=== PATIENT | male | born 1990 | race Caucasian/White ===

== ENCOUNTER → 2020-06-24 14:37 | Outpatient (BNVA) | payer SELFPAY | PROVIDERS: Family Provider Nurse Practitioner; PCP Nurse Practitioner Family; Visit Provider Emergency Medicine | DX: Z20.828 Contact with and (suspected) exposure to other viral communicable diseases (principal) | CPT/HCPCS: 87635 ==

== ENCOUNTER 2021-09-12 11:45 | Emergency (ER) | payer SELFPAY ==
[2021-09-12 11:47] VITALS: BP 175/90; PULSE 100; RESP 14; TEMP 36.8; O2SAT 100; BMI 32.8
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
[2021-09-12] MEDS: iohexol 300 mg/mL 100 mL Btl IV (12:55)
[2021-09-12 13:05] VITALS: RESP 16
[2021-09-12] MEDS: tetanus-dipt-pertussis 0.5 mL SDV IM (13:05)
[2021-09-12] MEDS: morphine 4 mg/mL SDV 1 mL IVP (13:05)
[2021-09-12 13:59] VITALS: BP 131/65; PULSE 86; RESP 14; O2SAT 97
== END 2021-09-12 13:59 | disposition home or self-care (01) ==
PROVIDERS: Emergency Provider Emergency Medicine; Family Provider Nurse Practitioner; PCP Nurse Practitioner Family
DX: S30.1XXA Contusion of abdominal wall, initial encounter (principal); S20.212A Contusion of left front wall of thorax, initial encounter; S40.012A Contusion of left shoulder, initial encounter; S80.12XA Contusion of left lower leg, initial encounter; S30.811A Abrasion of abdominal wall, initial encounter; S80.812A Abrasion, left lower leg, initial encounter; S20.312A Abrasion of left front wall of thorax, initial encounter; F17.210 Nicotine dependence, cigarettes, uncomplicated; V89.2XXA Person injured in unspecified motor-vehicle accident, traffic, initial encounter; Z23 Encounter for immunization
CPT/HCPCS: 70450; 71260; 72125; 72128; 73552; 73562; 73590; 74177; 90471; 90715; 96374; 99284; J2270; Q9967

== ENCOUNTER 2021-10-19 15:04 | Outpatient (CLI) | payer BC, SELFPAY ==
--- NOTE | 2021-10-19 15:36 | XR_ITS ---
WS: [email or web address] Exam: XR thoracic spine 3V* [id number] Date/Time of Exam: 10/19/2021 3:41 PM Reason For Exam: ACUTE LEFT SIDED THORACIC BACK PAIN Exam: XR thoracic spine 3V* [id number] Date/Time of Exam: 10/19/2021 3:41 PM Reason For Exam: ACUTE LEFT SIDED THORACIC BACK PAIN No acute fracture or dislocation. Paraspinal soft tissues are unremarkable. No scoliosis. XR/XR thoracic spine 3V* [id number] IMPRESSION: 1. Unremarkable thoracic spine study.
== END 2021-10-19 15:05 | disposition home or self-care (01) ==
PROVIDERS: PCP Nurse Practitioner Family; Visit Provider Nurse Practitioner Family
DX: M54.6 Pain in thoracic spine (principal)
CPT/HCPCS: 72072

== ENCOUNTER → 2022-07-11 12:11 | Outpatient (BNVA) | payer BC, SELFPAY | PROVIDERS: PCP Nurse Practitioner Family; Visit Provider Emergency Medicine | DX: R09.81 Nasal congestion (principal); B34.9 Viral infection, unspecified | CPT/HCPCS: 87400 ==

== ENCOUNTER 2025-03-15 06:36 | Emergency (ER) | payer SELFPAY ==
--- OUTSIDE RECORDS SUMMARY | 2025-03-15 06:42 | XMS_ITS | Patient Health Record ---
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 Role Phone [place], [facility] Primary Care Provider [phone] MERLOS, [facility] Unavailable Unavailable Allergies No Known Allergies Reason For Referral No Information Medications Medication SIG (Take, Route, Frequency, Duration) Notes Start Date End Date Status Phentermine HCl 37.5 MG Tablet 1 tablet Orally Once a day; Duration: 30 days 02/09/2022 Not-Taking Cyclobenzaprine HCl 10 MG Tablet 1 tablet tid prn muscle spasms Orally tid; Duration: 30 day(s) Not-Taking methylPREDNISolone 4 MG Tablet Therapy Pack as directed Orally every 12 hrs; Duration: 6 days Not-Taking Ibuprofen 800 MG Tablet 1 tablet with fo od or milk as needed Orally Three times a day; Duration: 30 days Active Social History Tobacco Use: Social History Observation Description Date Details (start date - stop date) Current Smoker NA - NA Social History Depression Screening Social Info Question Answer Notes PHQ-9 Little interest or pleasure in doing thin gs Not at all Feeling down, depressed, or hopeless Several day s Trouble falling or staying asleep, or sleeping t oo much Several days Feeling tired or having little energy Several da ys Poor appetite or overeating Not at all Feeling bad about yourself, or that you are a failure, or have let yourself or your family down Several days Trouble concentrating on thi ngs, such as reading the newspaper or watching television Not at all Moving or speaking so slowly that other people could have noticed. Or the opposite ? being so fidgety or restless that you have been moving around a lot more than usual Not at all Thoughts that you would be b bill off , or of hurting yourself in some way Not at all Total Score 4 Interpretation Minimal Depression Drugs/Alcohol: Social Info Question Answer Notes Alcohol Screen (Audit-C) Did you have a drink containing alcohol in the past year? Yes How often did you have a drink containing alcohol in the past year? Monthly or less (1 point) Points 1 Interpretation Negative Drugs Have you used drugs other than those for medical reasons in the past 12 months? No Tobacco Use: Social Info Question Answer Notes xTobacco Use/Smoking Are you a current smoker How often do you smoke cigarettes? every day How many cigarettes a day do you smoke? 6-10 How soon after you wake up do you smoke your first cigarette? after 60 minutes Are you interested in quitting? Thinking about quitting Additional Details Category Social Info Options Details Drugs/Alcohol: Do you smoke marijuana? Ad mits, seldom Do you drink alcohol? Yes, occas ionally Section Notes: 12/28/2021 12/28/2021 PHQ-9 10/19/21 12/28/2021 10/19/21 Problems Problem Type SNOMED Code ICD Code Onset Dates Problem Status W/U Status Risk Notes Problem Morbid obesity (disorder) (584989983) Morbid (severe) obesity due to excess calories (E66.01) Active confirmed Problem Annual wellness visit (318272327021483) Wellness examination (Z00.00) Active confirmed Problem Posttraumatic stress disorder (42211603) PTSD (post-traumatic stress disorder) (F43.10) Active confirmed Problem Depression (052780831) Other depression (F32.89) Active confirmed Problem Morbid obesity (050084120) Morbid obesity (E66.01) Active confirmed Problem Lipid screening (525748882) Lipid screening (Z13.220) Active confirmed Problem Thyroid disorder screening (589254689) Thyroid disorder screen (Z13.29) Active confirmed Problem Body mass index 30.00 to 34.99 (311365048057867) Body mass index [BMI] 33.0-33.9, adult (Z68.33) Active confirmed Problem Body mass index 30.00 to 34.99 (855899850740460) Body mass index [BMI] 34.0-34.9, adult (Z68.34) Active confirmed Problem Obese class II (553800987954906) Body mass index [BMI] 35.0-35.9, adult (Z68.35) Active confirmed Problem 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) Shifting sleep-work schedule (G47.26) Active confirmed Problem Body mass index 30+ - obesity (099845550) Body mass index [BMI] 30.0-30.9, adult (Z68.30) Active confirmed Problem Body mass index 40+ - severely obese (630377911) Body mass index [BMI] 40.0-44.9, adult (Z68.41) Active confirmed Plan Of Treatment No Information Insurance Providers Payer Name Payer Address Payer Phone Subscriber Number Group Number Insured Name Patient Relationship to Insured Coverage Start Date Coverage End Date [employer] [address] [address] [place] [phone] [id number] JUSTYN STRONG Self - patient is the insured Medical (General) History Medical History History ICD Code Hypothyroidism Surgical History Surgery Date(Month/Year) tonsillectomy Colonoscopy 2010 wisdom teeth extraction Hospitalization History Reason Date(Month/Year) pneumonia twice
[2025-03-15 07:18] VITALS: BP 132/78; PULSE 75; RESP 16; TEMP 36.6; O2SAT 96; BMI 47.2
[2025-03-15 07:24] LABS: Hematocrit 47.0 % (37-53); Hemoglobin 15.30 g/dL (11.27-16.99); Mean Corpuscular HGB Conc 32.6 g/dL (30-55); Mean Corpuscular Hemoglobin 27.4 pg (27-33); Mean Corpuscular Volume 84.1 fl (82-101); Nucleated Red Blood Cells % 0 %; Platelet Count 402 10^3/cmm (157-399); Red Blood Count 5.59 10^6/uL (3.85-5.65); White Blood Count 13.90 10^3/uL (3.29-11.43)
[2025-03-15 07:38] LABS: Alanine Aminotransferase 54 U/L (0-41); Albumin Level 4.5 g/dL (3.5-5.2); Alkaline Phosphatase 81 U/L (40-130); Anion Gap 16.5 (5-19); Aspartate Amino Transferase 30 U/L (0-40); Blood Urea Nitrogen 12 mg/dL (6-20); Calcium 9.7 mg/dL (8.5-10.5); Carbon Dioxide 25 mmol/L (22-29); Chloride 100 mmol/L (98-107); Creatinine Clr Calc Pharmacy 172.4880; Globulin 3.9 g/dL (1.3-4.6); Glucose 131 mg/dL (65-115); Osmolality Calculated 286 mOsm/kg (285-295); Potassium 4.5 mmol/L (3.5-5.1); Sodium 137 mmol/L (136-145); Total Protein 8.4 g/dL (6.6-8.7)
--- NOTE | 2025-03-15 07:52 | W.ED.SKABFB ---
HPI - Skin/Abscess/Foreign Bdy General: Chief complaint: Skin/Abscess/Foreign Body Stated complaint: redness, swelling on chin, weakness, nausea Time Seen by Provider: 03/15/25 06:48 History of Present Illness: 34-year-old male presents emergency room with redness swelling and itching in just to the left of the midline it has been there for some time began as a pimple he been manipulating unable to get it to drain. It is increasingly tender. He recently was biopsied for a skin rash on his left forearm he was started on his series of antibiotics he is down to 2 pills today and 1 pill tomorrow he is unsure of the strength of the prednisone tablets. Has not had any fever. He has had some upset stomach. Associated symptoms: Reports nausea; Deny chills, fever(s) or vomiting Related Data Previous Rx's ?Medication ?Instructions ?Recorded bupropion HCl 150 mg tablet,12 hr 300 mg (2 x 150 mg) PO Q12H 30 03/04/24 sustained-release (Wellbutrin SR) days #120 tabs naltrexone 50 mg tablet 50 mg PO DAILY 30 days #30 tabs 03/04/24 sulfamethoxazole 800 1 tab PO BID 7 days #14 tabs 03/15/25 mg-trimethoprim 160 mg tablet (Bactrim DS) Allergies Allergy/AdvReac Type Severity Reaction Status Date / Time No Known Allergies Allergy Verified 07/11/22 12:06 Review of Systems Const: Denies: fever(s) or chills Card: Denies: chest pain Resp: Denies: dyspnea GI: Reports: nausea; Denies: abdominal pain or vomiting : Denies: dysuria, urinary frequency or urinary urgency Musc: Denies: neck pain or back pain Skin/Breast: Reports: rash, erythema and skin tenderness PFS ED PFSH: Medical History Congenital nystagmus Hypothyroid Surgical History History of tonsillectomy Family History Father Hypertension Diabetes Denies family history of Clotting disorder Dementia Social History Smoking and tobacco/nicotine status: never used tobacco/nicotine Alcohol intake: current Alcohol intake frequency: few times a month Substance/Drug Use: never Physical Exam Const: COMMON NORMALS: no acute distress GENERAL APPEARANCE: cooperative and comfortable ORIENTATION/CONSCIOUSNESS: Yes awake, Yes oriented to person, Yes oriented to place and Yes oriented to time HENMT: COMMON NORMALS: normocephalic, atraumatic and hearing grossly normal bilaterally HEAD & SCALP: normocephalic and atraumatic Eye: OTHER: Mild nystagmus Resp: COMMON NORMALS: normal respiratory effort, No retractions, No use of accessory muscles and clear to auscultation bilaterally AUSCULTATION: clear to auscultation bilaterally Cardio: COMMON NORMALS: regular rate, regular rhythm and No murmurs present (Cardio) RATE: regular rate RHYTHM: regular rhythm GI: COMMON NORMALS: Soft to palpation and No hepatosplenomegaly present AUSCULTATION: Yes normoactive bowel sounds PALPATION: Yes Soft to palpation, No Tenderness to palpation present (GI), No Guarding due to palpation present (GI) and Yes No hepatosplenomegaly present Extremity: COMMON NORMALS: normal to inspection, capillary refill normal, no clubbing, cyanosis or edema, no calf tenderness and no pedal edema Neuro: SENSORIUM/ORIENTATION: Yes oriented to person, Yes oriented to place and Yes oriented to time Skin: OTHER: Mild redness of the skin overlying the central nodular area about 3 cm x 2 cm. It is not fluctuant at this time no active drainage. Tender to touch. Course Vital Signs: Vital signs: Vital Signs Temperature 97.9 F 03/15/25 07:18 Pulse Rate 71 03/15/25 08:12 Respiratory Rate 16 03/15/25 07:18 Blood Pressure 132/78 03/15/25 08:12 Pulse Oximetry 95 03/15/25 08:12 Oxygen Delivery Me thod Room Air 03/15/25 08:12 MDM - Skin/Abscess/Foreign Bdy Medicial Decision Making Discharge. Normal Bactrim DS 1 p.o. twice daily x 7 days follow-up with his primary care doctor can apply moist heat to the area as needed. Follow-up with your primary care if improving. Lab Data 03/15/25 07:17 03/15/25 07:17 Laboratory Results WBC 13.90 10^3/uL (3.29-11.43) H 03/15/25 07:17 RBC 5.59 10^6/uL (3.85-5.65) 03/15/25 07:17 Hgb 15.30 g/dL (11.27-16.99) 03/15/25 07:17 Hct 47.0 % (37-53) 03/15/25 07:17 MCV 84.1 fl (82-101) 03/15/25 07:17 MCH 27.4 pg (27-33) 03/15/25 07:17 MCHC 32.6 g/dL (30-55) 03/15/25 07:17 RDW 14.5 % (12.1-15.1) 03/15/25 07:17 Plt Count 402 10^3/cmm (157-399) H 03/15/25 07:17 MPV 8.9 fL (7.4-10.4) 03/15/25 07:17 Neut % (Auto) 81.0 % 03/15/25 07:17 Lymph % (Auto) 13.7 % 03/15/25 07:17 [place] % (Auto) 4.7 % 03/15/25 07:17 Eos % (Auto) 0.1 % 03/15/25 07:17 Baso % (Auto) 0.1 % 03/15/25 07:17 Neut # (Auto) 11.26 10^3/uL (1.8-7.7) H 03/15/25 07:17 Lymph # (Auto) 1.9 10^3/uL (0.8-4.8) 03/15/25 07:17 [place] # (Auto) 0.7 10^3/uL (0.2-0.9) 03/15/25 07:17 Eos # (Auto) 0.0 10^3/uL (0.0-0.8) 03/15/25 07:17 Baso # (Auto) 0.0 10^3/uL (0.0-0.1) 03/15/25 07:17 Nucleated RBC % (auto) 0 % 03/15/25 07:17 Nucleated RBCs # 0.0 /100WBC 03/15/25 07:17 Sodium 137 mmol/L (136-145) 03/15/25 07:17 Potassium 4.5 mmol/L (3.5-5.1) 03/15/25 07:17 Chloride 100 mmol/L (98-107) 03/15/25 07:17 Carbon Dioxide 25 mmol/L (22-29) 03/15/25 07:17 Anion Gap 16.5 (5-19) 03/15/25 07:17 BUN 12 mg/dL (6-20) 03/15/25 07:17 Creatinine 0.9 mg/dL (0.7-1.2) 03/15/25 07:17 GFR Calculation 97.8 mL/min (90-130) 03/15/25 07:17 Glucose 131 mg/dL (65-115) H 03/15/25 07:17 Calculated Osmolality 286 mOsm/kg (285-295) 03/15/25 07:17 Calcium 9.7 mg/dL (8.5-10.5) 03/15/25 07:17 Total Bilirubin 0.4 mg/dL (0.15-1.2) 03/15/25 07:17 AST 30 U/L (0-40) 03/15/25 07:17 ALT 54 U/L (0-41) H 03/15/25 07:17 Alkaline Phosphatase 81 U/L (40-130) 03/15/25 07:17 Total Protein 8.4 g/dL (6.6-8.7) 03/15/25 07:17 Albumin 4.5 g/dL (3.5-5.2) 03/15/25 07:17 Globulin 3.9 g/dL (1.3-4.6) 03/15/25 07:17 No radiology studies performed this visit Discharge Plan Discharge Patient Disposition: Home Clinical Impression: Cellulitis Condition: Stable Prescriptions: New sulfamethoxazole-trimethoprim [Bactrim DS] 800-160 mg tablet 1 tab PO BID 7 Days Qty: 14 0RF No Action bupropion HCl [Wellbutrin SR] 150 mg tablet sustained-release 12 hr 300 mg PO Q12H 30 Days Qty: 120 0RF naltrexone 50 mg tablet 50 mg PO DAILY 30 Days Qty: 30 0RF Rx Instructions: Start with 1/4 tab naltraxonein am for 1 week with 1 150 mg bupropion, then 1/4 tab naltraxone in am and pm for 2nd week with 1 150 mg bupropion, then 3rd week 1/2 tab naltraxone in am for with 1 150 mg bupropion and 1/4 tab naltraxone in then pm with 1 150 mg bupropion then week 4 on 1/2 tab naltraxone twice daily and 1 150 mg bupropion twice daily Discharge Orders: Discharge ED (Routine); Ordered 03/15/25 Ordered By: Margarito Patton Discharge Diet: Usual diet Discharge Activity: Resume usual activity Patient Instructions: Opioid Safety, Pain Management, Patient Portal & Rita Instructions Activity Restrictions/Additional Instructions: Thank you for choosing [facility] for your healthcare needs today. It is very important that you follow up as instructed or that you return to the Emergency Department should you have concerns or if your condition changes or worsens in any way. You are seen in the emergency room with complaints of swelling and redness on the chin. On exam you do have a cellulitis under the chin in the soft tissue. It is not at this time amenable to incision and drainage recommend starting oral antibiotics 1 pill twice a day Print Language: Iranian Coding Level of Care Code ED Vice President Corporate Communications for Nicolasa Garcia
[2025-03-15 08:12] VITALS: BP 132/78; PULSE 71; O2SAT 95
[2025-03-15 08:20] VITALS: BP 132/78; PULSE 77; O2SAT 97
== END 2025-03-15 08:20 | disposition home or self-care (01) ==
PROVIDERS: Emergency Provider Family Medicine
DX: L03.90 Cellulitis, unspecified (principal)
CPT/HCPCS: 36415; 80053; 85025; 99283